=== PATIENT | female | born 1975 | race Caucasian/White ===

== ENCOUNTER 2022-10-09 16:17 | Emergency (ER) | payer OTHER, SELFPAY ==
[2022-10-09] VITALS (7 sets, daily range): BP systolic 100–143; BP diastolic 57–123; PULSE 71–100; RESP 16–18; TEMP 36.4–36.8; O2SAT 95–100
--- NOTE | 2022-10-09 19:33 | ED.GENADULT ---
HPI - General Adult General Chief complaint: Vaginal Bleeding Stated complaint: heavy periods Time Seen by Provider: 10/09/22 19:25 Source: patient Mode of arrival: ambulatory Limitations: no limitations History of Present Illness HPI narrative: Patient is a 46-year-old female with a history of anxiety, depression, hypertension presenting to the emergency department for evaluation of heavy vaginal bleeding. Patient states that she has had heavy menstrual cycle the past 7 days, soaking through greater than 1 pad per hour. Patient reports mild pelvic cramping without vaginal discharge. Patient does not believe she is . Patient denies any back pain, dysuria. She denies fever, chills, nausea, vomiting, lightheadedness. Patient reports extreme anxiety, states that she is anxious anytime she comes to hospitals, is requesting Ativan or Xanax, something to help her calm down. Patient is on any control currently. She does have a history of chronic heavy periods. 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 Related Data Allergies Allergy/AdvReac Type Severity Reaction Status Date / Time morphine Allergy Mild VOMITING Verified 10/09/22 20:24 Review of Systems Review of Systems: CONSTITUTIONAL: Denies fever, chills, or sweats. EYES: Denies visual changes, redness, or discharge. ENT: Denies rhinorrhea, congestion, sore throat, or otalgia. CARDIOVASCULAR: Denies chest pain, palpitations, or edema. RESPIRATORY: Denies cough or dyspnea. GASTROINTESTINAL: Denies abdominal pain, nausea, vomiting, or diarrhea.Reports pelvic pain with vaginal bleeding. GENITOURINARY: Denies dysuria or hematuria.Denies flank pain. SKIN: Denies rash or itching. MUSCULOSKELETAL: Denies back pain, joint pain, or myalgia. NEUROLOGIC: Denies headache, numbness, or weakness. [facility] Past Medical History Medical History (Updated 10/09/22 @ 23:12 by Fabiola Frederick MD) Anxiety Back pain Bipolar disorder Depression Heavy period Hypertension Pulmonary embolism Surgical History Surgical History (Updated 10/09/22 @ 20:05 by Fabiola Frederick MD) No pertinent past surgical history Social History Social History (Updated 10/09/22 @ 20:06 by Fabiola Frederick MD) Smoking status: Current some day smoker Alcohol intake: never Substance use: never Gender identity (if verbalized by the patient): Female Exam Narrative: GENERAL: Awake, alert, conversant, anxious HEAD: Normocephalic, atraumatic. EYES: PERRLA and EOMI. ENT: Nares clear, no rhinorrhea or epistaxis. Mucous membranes moist. NECK: Supple. CHEST: No respiratory distress, breathing even and non labored HEART: Regular rate, sinus rhythm ABDOMEN:Non distended, non tender Labia majora and minora normal without lesions. Vagina with blood, no brisk bleeding or blood clots. No cervical motion tenderness. No adnexal tenderness or fullness bilaterally. No other discharge present. EXTREMITIES: Normal range of motion. No edema. SKIN: Warm, dry, no rash. NEURO:No focal deficits. Alert and oriented x3 Course Vital Signs Vital signs: Vital Signs Temperature 36.4 C 10/09/22 16:38 Pulse Rate 100 10/09/22 16:38 Respiratory Rate 16 10/09/22 16:38 Blood Pressure 143/87 H 10/09/22 16:38 Pulse Oximetry 100 10/09/22 16:38 Temperature 36.4 C 10/09/22 16:38 Pulse Rate 93 10/09/22 22:16 Respiratory Rate 18 10/09/22 22:16 Blood Pressure 110/68 10/09/22 22:16 Pulse Oximetry 100 10/09/22 22:16 Medical Decision Making MDM Narrative Medical decision making narrative: Patient presented for evaluation of heavy vaginal bleeding associated with menstrual cycle. The time of assessment, ABCs are intact and vital signs are stable. Patient is not hypotensive or significantly tachycardic. She does report mild pelvic cramping type pain. On exam, there is some blood present without brisk bleeding or large blood clots. Patient does have a history o
[2022-10-09 20:05] LABS: Basophils Absolute Auto 0.1 K/mm3 (0.0-0.1); Eosinophils Absolute Auto 0.1 K/mm3 (0-0.3); Eosinophils Percent Auto 0.9 % (0-4.4); Hematocrit 34.1 % (37.0-47.0); Hemoglobin 10.9 g/dL (12.0-15.0); Immature Granulocyte Absolute 0.03 K/mm3 (0.00-0.031); Immature Granulocyte Percent A 0.3 % (0-0.5); Lymphocytes Absolute Auto 2.98 K/mm3 (0.9-3.2); Lymphocytes Percent Auto 30.4 % (18.3-44.2); Mean Corpuscular Hemoglobin 29.1 pg (26-34); Mean Corpuscular Volume 90.9 fl (80-100); Mean Platelet Volume 9.3 fl (7.4-10.4); Monocytes Absolute Auto 0.8 K/mm3 (0.1-0.6); Monocytes Percent Auto 7.7 % (2.6-8.5); Neutrophils Absolute Auto 5.8 K/mm3 (1.3-6.7); Neutrophils Percent Auto 59.7 % (45.5-73.1); Platelet Count Result 476 k/mm3 (150-375); Red Blood Count 3.75 M/mm3 (4.2-5.4); Red Cell Distribution Width 14.3 % (11.5-14.5); White Blood Count 9.8 K/mm3 (4.5-10.0)
[2022-10-09 20:14] LABS: Alanine Aminotransferase 17 U/L (6-35); Albumin Level 4.3 g/dL (3.5-5.1); Alkaline Phosphatase 85 U/L (38-126); Anion Gap 4 mmol/L (8-16); Aspartate Amino Transferase 21 U/L (14-36); Bilirubin,Total 0.2 mg/dL (0.2-1.3); Blood Urea Nitrogen 7 mg/dL (7-17); Calcium 9.5 mg/dL (8.4-10.2); Carbon Dioxide 27 mmol/L (22-30); Chloride 103 mmol/L (98-107); Estimated CRCL calculation 109 ml/min; Estimated Glomerular Filt Rate > 60; Glucose 105 mg/dL (65-110); Sodium 134 mmol/L (137-145)
[2022-10-09 20:17] LABS: Prothrombin Time 12.6 Seconds (11.1-14.7)
[2022-10-09 20:18] LABS: Add Urine Microscopic? YES; Appearance Urine Slightly Cloudy (Clear); Bilirubin Urine Negative (Negative); Blood Urine 3+ (Negative); Color Urine Red (Yellow); Glucose Urine UA Negative (Negative); Ketones Urine Negative (Negative); Leukocyte Esterase Ur Negative LEU/UL (Negative); Nitrate Urine Negative (Negative); Protein Urine 1+ mg/dL (Negative); Specific Grav Ur 1.025 (1.001-1.035); Urobilinogen Urine 0.2 mg/dL (<2.0)
[2022-10-09 20:18] LABS: Partial Thromboplastin Time 26.2 SECONDS (22.3-36.8)
[2022-10-09] MEDS: IBUPROFEN 600 MG TABLET PO (20:22)
[2022-10-09] MEDS: ACETAMINOPHEN 500 MG TABLET 1000 MG PO (20:22)
[2022-10-09] MEDS: LORazepam INJ (*CRX) 2 MG/ML VIAL 0.5 MG IV PUSH (20:22)
[2022-10-09] MEDS: ONDANSETRON HCL ODT 4 MG TABLET PO (20:23)
[2022-10-09 20:31] LABS: Mucus Urine Rare /lpf; RBC Urine >75 /hpf (0-2); Squamous Epithelial Cell Urine Rare /hpf (Few); WBC Urine 0-3 /hpf
[2022-10-09] MEDS: TRANEXAMIC ACID 1,000MG/ISO100 1,000 MG/100 ML BAG 200 MG IVPB (20:37)
--- NOTE | 2022-10-09 22:28 | PC.NURSE ---
Repeat H&H was drawn, no tubes to send in tube system. H&H is being sent now.
[2022-10-09 22:35] LABS: Hematocrit 30.5 % (37.0-47.0); Hemoglobin 9.7 g/dL (12.0-15.0)
[2022-10-10 04:49] LABS: Free T4 Free Thyroxine Reflex 1.03 ng/dL (0.78-2.19)
[2022-10-10 05:53] LABS: Total Triiodothyronine (T3) 1.37 NG/ML (0.97-1.69)
== END 2022-10-09 23:31 | disposition home or self-care (01) ==
PROVIDERS: Emergency Provider Emergency Medicine; PCP Family Medicine Adolescent Medicine
DX: N93.8 Other specified abnormal uterine and vaginal bleeding (principal); D64.9 Anemia, unspecified; I10 Essential (primary) hypertension; F41.9 Anxiety disorder, unspecified; Z86.711 Personal history of pulmonary embolism; F17.200 Nicotine dependence, unspecified, uncomplicated
CPT/HCPCS: 36415; 80053; 81001; 81025; 84439; 84443; 84480; 85014; 85018; 85025; 85610; 85730; 86850; 86900; 86901; 96365; 96366; 96375; 99284; A9270; J2060

== ENCOUNTER 2023-01-21 13:50 | Emergency (ER) | payer OTHER, SELFPAY ==
[2023-01-21 14:01] VITALS: BP 142/94; PULSE 109; RESP 16; TEMP 36.8; O2SAT 99
--- NOTE | 2023-01-21 14:32 | ED.GENADULT ---
HPI - General Adult General Chief complaint: Extremity Problem,Nontraumatic Stated complaint: Ankle/Feet Pain Time Seen by Provider: 01/21/23 14:03 Source: patient Mode of arrival: ambulatory Limitations: no limitations History of Present Illness HPI narrative: patient is a 47-year-old female presenting with lower leg swelling over the past week. states that the swelling was worse 2 days ago. reports being on her feet all the time due to having new grand baby and work. has not tried any [place] wrap for compression on lower extremities. has not been wearing supportive shoes or taking medications for 2 weeks. Related Data Home Medications Medication Instructions Recorded Confirmed levothyroxine 50 mcg tablet mcg 01/21/23 01/21/23 lisinopril 50 mg PO DAILY 01/21/23 01/21/23 lorazepam 0.5 mg tablet 0.5 mg PO DIRECTED 01/21/23 01/21/23 Allergies Allergy/AdvReac Type Severity Reaction Status Date / Time morphine Allergy Mild VOMITING Verified 01/21/23 13:59 Review of Systems Review of Systems: All systems reviewed & are unremarkable except as noted in HPI and below Constitutional: Constitutional: Denies body ache(s), Denies fever(s), Denies headache(s), Denies malaise and Denies weakness Eyes: Eyes: Denies loss of vision ENT: Denies otalgia, Denies headache(s), Denies nasal discharge, Denies sinus pain and Denies sore throat Cardiovascular: Cardiovascular: Denies chest pain, Denies irregular heart rhythm and Denies dyspnea Respiratory: Respiratory: Denies dyspnea Gastrointestinal: Gastrointestinal: Denies abdominal pain, Denies melena, Denies hematochezia, Denies diarrhea, Denies nausea and Denies vomiting Musculoskeletal: Musculoskeletal: Denies back pain, Denies myalgias, Denies arthralgias and Reports other Comments: lower leg swelling Integumentary/Breasts: Skin/Breast: Denies pruritus and Denies rash Neurologic: Denies headache(s), Denies loss of vision and Denies weakness Psychiatric: Psychiatric: Reports no additional psychiatric complaints [facility] Past Medical History Medical History (Updated 01/21/23 @ 14:41 by Aura Mazariegos, [employer] OPERATOR) Anxiety Back pain Bipolar disorder Depression Heavy period Hypertension Pulmonary embolism Surgical History Surgical History (Updated 10/09/22 @ 20:05 by Fabiola Frederick MD) No pertinent past surgical history Social History Social History (Updated 10/09/22 @ 20:06 by Fabiola Frederick MD) Smoking status: Current some day smoker Alcohol intake: never Substance use: never Gender identity (if verbalized by the patient): Female Comments At time of signature, agree with nursing past medical, surgical, social and family history. There is no relevant family history pertinent to the presenting complaint. Exam Const: General: cooperative, healthy appearing, comfortable, no acute distress and well nourished Nutritional Appearance: well nourished Orientation/consciousness: patient oriented x3 Limitations: no limitations HENMT: Head: normal to inspection, normocephalic and atraumatic Ears: external ears normal Face/Nose/Sinus: Normal external nose present, normal facial exam and face symmetric Face and sinus: normal facial exam and face symmetric Mouth: Yes lip normal Eyes: General: appearance normal, both eyes and all related structures Alignment and Position: alignment normal and position normal Periorbital: periorbital findings normal Eyelids: eyelids normal Pupils: Equal, round and reactive pupils present EOM: EOMs intact bilaterally Neck: Neck: normal visual inspection and full ROM Chest: Chest palpation & inspection: normal inspection of the chest Resp: Effort & Inspection: normal respiratory effort and able to speak in complete sentences Auscultation: clear to auscultation bilaterally Cardio: Rate: regular rate Rhythm: regular rhythm Heart sounds: S1 normal heart sound present and S2 normal heart sound present GI: Inspection
== END 2023-01-21 14:47 | disposition home or self-care (01) ==
PROVIDERS: Emergency Provider Nurse Practitioner Family; PCP Family Medicine Adolescent Medicine
DX: R22.43 Localized swelling, mass and lump, lower limb, bilateral (principal); F17.200 Nicotine dependence, unspecified, uncomplicated; I10 Essential (primary) hypertension; F41.9 Anxiety disorder, unspecified; Z86.711 Personal history of pulmonary embolism
CPT/HCPCS: 99211; G0463